=== PATIENT | male | born 1990 | race Caucasian/White ===

== ENCOUNTER 2018-11-14 09:15 | Emergency (ER) | payer OTHER ==
[~2018-11-14] VITALS: Ht 170.2 cm; Wt 66.2 kg
[2018-11-14 09:25] VITALS: BP 125/70
--- NOTE | 2018-11-14 09:25 | NUR ---
BIB SELF. AAO X4, PT WANTS TO SELF-ADMIT FOR SUICIDAL IDEATION. PT REFUSED TO DIVULGE SPECIFIC PLANS/THOUGHTS. CLEAR SPEECH. STEADY GAIT. PT REFUSED TO CHANGE TO GOWN. OTHER PERSONAL BELONGINGS WERE STORED AND SECURED IN A PLASTIC BAG. SECURITY NOTIFIED. PT APPEARS TO BE SUSPICIOUS AND DOESN'T WANT A LOT OF PEOPLE AROUND OR TO SEE HIM.PT WAS PLACED ON 5150 HOLD BY OIL TRUCK DRIVERJAIRO. EMT JES AT BEDSIDE. ON LOW BED POSITION, LOCKED. HOB UP. ER MADE AWARE OF PT STATUS.
--- NOTE | 2018-11-14 09:40 | NUR ---
PT IS ASLEEP AND RESTING IN BED. NO DISRESS NOTED. WILL CONTINUE TO MONITOR.
--- NOTE | 2018-11-14 09:46 | NUR ---
Patient being evaluated by physician at bedside.
--- NOTE | 2018-11-14 10:00 | NUR ---
ESPINOZA Rose encourage the pt to provide urine specimen but pt unable to provide at this time
[2018-11-14 10:10] LABS: BASOPHILS # (AUTO) 0.1 K/uL (0.00-0.22); BASOPHILS % (AUTO) 0.9 % (0.0-2.0); EOSINOPHILS % (AUTO) 0.4 % (0.0-4.0); HEMATOCRIT 43.9 % (36-52); HEMOGLOBIN 14.6 g/dL (12.0-18.0); LYMPHOCYTES # (AUTO) 2.1 K/uL (2.0-11.5); LYMPHOCYTES % (AUTO) 36.2 % (20.5-51.1); MEAN CORPUSCULAR HEMOGLOBIN 31 pg (27-31); MEAN CORPUSCULAR HGB CONC 33 g/dL (33-37); MEAN CORPUSCULAR VOLUME 92.3 fL (80-94); MONOCYTES # (AUTO) 0.6 K/uL (0.8-1.0); MONOCYTES % (AUTO) 10.6 % (1.7-9.3); NEUTROPHILS % (AUTO) 51.9 % (42.2-75.2); PLATELET COUNT (AUTO) 249 K/uL (140-450); RED BLOOD CELL COUNT(AUTO) 4.76 MIL/uL (4.20-6.10); RED CELL DISTRIBUTION WIDTH 13.6 % (11.6-13.7); WHITE BLOOD COUNT (AUTO) 5.7 K/uL (4.8-10.8)
--- NOTE | 2018-11-14 10:30 | NUR ---
PT IS ASLEEP AND RESTING. EASILY TO AROUSE. JES EMT AT BEDSIDE. WILL CONTINUE TO MONITOR.
[2018-11-14 10:33] LABS: ANION GAP 12.5 (8-16); CARBON DIOXIDE 28.7 mmol/L (21-32); CHLORIDE 102 mmol/L (98-107); CREATININE 0.9 mg/dL (0.7-1.3); GFR ARICAN-AMERICAN 128 mL/min (>90); GLUCOSE 83 mg/dL (74-106); POTASSIUM 4.2 mmol/L (3.5-5.1); SODIUM SERUM 139 mmol/L (136-145); UREA NITROGEN, BLOOD 17 mg/dL (7-18)
[2018-11-14 10:37] LABS: ASPARTATE AMINOTRANSFERASE 36 U/L (15-37); TOTAL BILIRUBIN 0.6 mg/dL (0.0-1.0)
--- NOTE | 2018-11-14 11:00 | NUR ---
Pt informed by charge histotechnologist he will be straight cath since he is unable to provide urine specimen at this time but patient refused Addendum: 11/14/[address] at [address] Gutierrez notified
[2018-11-14] MEDS ORDERED: diphenhydrAMINE 50 MG/ML VIAL IM ONE (12:00)
[2018-11-14] MEDS ORDERED: LORazepam 2 MG/ML VIAL IVP ONE (12:00)
--- NOTE | 2018-11-14 12:00 | NUR ---
SPOKE TO NEWTON GRIFFITH FOR ASSISTANCE. PATIENT ON 5150 WALKED TOWARD [facility]. PRIMARY NURSE ELSIE MADE AWARE. HOSPITAL SECURITY ALSO CALLED FOR ASSISTANCE.
--- NOTE | 2018-11-14 12:11 | NUR ---
[place] PD at the facility talking to Dr Gutierrez and maltster. Per Dr Gutierrez was medically cleared but pt had eloped at 1158 with security at bedside. Per [place] PD they found the patient on the street and the patient wants to go to [facility]. Per [place] GRIFFITH he will evaluated and transported to [facility]. Belongings given to Audie GRIFFITH.
--- NOTE | 2018-11-14 14:00 | NUR ---
ATTEMPTED TO FAX HOLD TO [phone] SINCE [phone], COULD NOT BE SENT/TRANSACTION CAN NOT BE SENT.
== END 2018-11-14 11:58 | disposition left against medical advice (07) ==
LOC: MED 09:15
DX: R45.851 Suicidal ideations (principal); F32.9 Major depressive disorder, single episode, unspecified; F15.10 Other stimulant abuse, uncomplicated; F12.10 Cannabis abuse, uncomplicated; F20.9 Schizophrenia, unspecified; F17.200 Nicotine dependence, unspecified, uncomplicated; Z02.89 Encounter for other administrative examinations; Z88.8 Allergy status to other drugs, medicaments and biological substances
CPT/HCPCS: 36415; 80053; 85025; 99283; G0482

== ENCOUNTER 2019-02-25 09:55 | Emergency (ER) | payer MEDICAID, OTHER ==
[~2019-02-25] VITALS: Ht 170.2 cm; Wt 72.6 kg
[2019-02-25 09:55] VITALS: BP 125/78
--- NOTE | 2019-02-25 09:55 | NUR ---
Patient BIBA BLS, transferred to bed 8. RN evaluating patient at bedside.
--- NOTE | 2019-02-25 10:10 | NUR ---
BLOOD DRAW OBTAINED. CALLED LAB FOR BIOMATHEMATICIAN.
[2019-02-25] MEDS ORDERED: BUSPAR (10:14)
[2019-02-25] MEDS ORDERED: [UNRECOGNIZED DRUG - OTHER] (10:14)
[2019-02-25] MEDS ORDERED: [UNRECOGNIZED DRUG - OTHER] (10:14)
--- NOTE | 2019-02-25 10:26 | NUR ---
DR ARZATE AT BEDSIDE TO EVALUATE PT
--- NOTE | 2019-02-25 10:35 | NUR ---
PT WALKED OUT AMA . SIGNED THE PAPER. IV AND ID BAND TAKEN OUT. DR. ARZATE AWARE.
--- NOTE | 2019-02-25 10:35 | NUR ---
Patient does not wish to proceed with medical care recommended by DR ARZATE. Patient given information related to possible complications, up to and including , which could occur as a result of leaving hospital at this time. Patient verbalizes understanding of risks involved leaving against medical advice. Patient has signed AMA form.
[2019-02-25 10:53] LABS: BARBITURATE, URINE NEG. ng/ml (NEG <=200); BENZODIAZEPINE, URINE NEG. ng/mL (NEG <=200); CANNABINOID, URINE NEG. ng/mL (NEG <=50); COCAINE, URINE NEG. ng/mL (NEG <=300); OPIATE, URINE NEG. ng/mL (NEG <=2000); PHENCYCLIDINE SCREEN,URINE NEG. ng/mL (NEG <=25)
== END 2019-02-25 10:33 | disposition left against medical advice (07) ==
LOC: MED 09:55
DX: F15.10 Other stimulant abuse, uncomplicated (principal); F12.10 Cannabis abuse, uncomplicated; F25.9 Schizoaffective disorder, unspecified; F17.200 Nicotine dependence, unspecified, uncomplicated; Z88.8 Allergy status to other drugs, medicaments and biological substances
CPT/HCPCS: 36415; 80305; 99283; G0482

== ENCOUNTER 2019-06-09 14:50 | Inpatient (IN) | payer MEDICAID ==
[~2019-06-09] VITALS: Ht 170.2 cm; Wt 82.6 kg
[~2019-06-09 14:50] MED LIST: BUSPAR; [UNRECOGNIZED DRUG - OTHER]; [UNRECOGNIZED DRUG - OTHER]
--- NOTE | 2019-06-09 14:50 | NUR ---
PATIENT BIBA TO ER BED 5.
[2019-06-09 14:54] VITALS: BP 147/92
--- NOTE | 2019-06-09 14:54 | NUR ---
28 Y/O BIBA FOR SUICIDAL IDEATION. PT STATES "IM HEARING VOICES THEYRE TELLING ME TO HURT MYSELF, I DRANK A CHEMICAL OFF THE STREET". PATIENT IS A/O X3 FOLLOWS COMMANDS; PATIENT APPEARS WITHDRAWN; AGITATED. HE STATES, "I DON'T FEEL SAFE HERE". BREATHING IS UNLABORED AND SYMMETRICAL. DENIES N/V/D. ERMD MADE AWARE. 1:1 SITTER AT BEDSIDE. SUSI CONTINUE TO MONITOR. UNKOWN CHEMICAL INGESTION PMH: ANXIETY RX:BUSPIRONE; SEROQUEL; EFFEXORL TRAZADONE; GEODON
--- NOTE | 2019-06-09 15:08 | NUR ---
CONTACTED POISON CONTROL SERVICES ( ) AND SPOKE WITH DOTTY LITTLEJOHN. INSTRUCTED TO OBTAIN FULL BLOOD PANEL WORK UP, TOXICOLOGY SCREENING, BASIC LAB, AND EKG TO MONITOR FOR BASELINE. CALL POISON CONTROL FOR FURTHER SYMPTOMS. NOTIFIED ER MD. WILL CONTINUE TO MONITOR PATIENT.
--- NOTE | 2019-06-09 15:10 | NUR ---
LAB AT BEDSIDE.
--- NOTE | 2019-06-09 15:15 | NUR ---
Telepsychiatry consultation ordered as requested by Dr. Barton.
[2019-06-09 15:30] LABS: BASOPHILS % (AUTO) 0.4 % (0.0-2.0); EOSINOPHILS % (AUTO) 0.2 % (0.0-4.0); HEMATOCRIT 46.5 % (36-52); HEMOGLOBIN 15.3 g/dL (12.0-18.0); LYMPHOCYTES # (AUTO) 2.4 K/uL (2.0-11.5); LYMPHOCYTES % (AUTO) 32.3 % (20.5-51.1); MEAN CORPUSCULAR HEMOGLOBIN 31 pg (27-31); MEAN CORPUSCULAR HGB CONC 33 g/dL (33-37); MEAN CORPUSCULAR VOLUME 92.6 fL (80-94); MONOCYTES # (AUTO) 1.2 K/uL (0.8-1.0); MONOCYTES % (AUTO) 16.1 % (1.7-9.3); NEUTROPHILS # (AUTO) 3.9 K/uL (1.8-7.7); PLATELET COUNT (AUTO) 311 K/uL (140-450); RED BLOOD CELL COUNT(AUTO) 5.03 MIL/uL (4.20-6.10); RED CELL DISTRIBUTION WIDTH 14.6 % (11.6-13.7); WHITE BLOOD COUNT (AUTO) 7.6 K/uL (4.8-10.8)
[2019-06-09 15:32] LABS: APPEARANCE,URINE CLEAR (CLEAR); BILIRUBIN,URINE NEGATIVE (NEGATIVE); BLOOD, URINE NEGATIVE (NEGATIVE); COLOR,URINE YELLOW (YELLOW); LEUKOCYTE ESTERASE ,URINE NEGATIVE (NEGATIVE); NITRITE, URINE NEGATIVE (NEGATIVE); UGLUCOSE NEGATIVE (NEGATIVE)
[2019-06-09 15:38] LABS: BARBITURATE, URINE NEG. ng/ml (NEG <=200); BENZODIAZEPINE, URINE NEG. ng/mL (NEG <=200); CANNABINOID, URINE NEG. ng/mL (NEG <=50); COCAINE, URINE NEG. ng/mL (NEG <=300); OPIATE, URINE NEG. ng/mL (NEG <=2000); PHENCYCLIDINE SCREEN,URINE NEG. ng/mL (NEG <=25)
--- NOTE | 2019-06-09 15:40 | NUR ---
Dr. Barton evaluating patient at bedside.
[2019-06-09 15:41] LABS: RBC,URINE NONE SEEN /HPF (0-5); WBC,URINE NONE SEEN /HPF (0-5)
--- NOTE | 2019-06-09 16:01 | NUR ---
PT SPEAKING WITH PSYCHIATRIST VIA TELEPSYCH.
[2019-06-09 16:03] LABS: ANION GAP 14.2 (8-16); CARBON DIOXIDE 27.6 mmol/L (21-32); CHLORIDE 103 mmol/L (98-107); CREATININE 0.9 mg/dL (0.7-1.3); GFR ARICAN-AMERICAN 128 mL/min (>90); GLUCOSE 89 mg/dL (74-106); POTASSIUM 3.8 mmol/L (3.5-5.1); SODIUM SERUM 141 mmol/L (136-145); UREA NITROGEN, BLOOD 16 mg/dL (7-18)
[2019-06-09 16:08] LABS: ALBUMIN 4.4 g/dL (3.4-5.0); ASPARTATE AMINOTRANSFERASE 34 U/L (15-37); TOTAL BILIRUBIN 0.8 mg/dL (0.0-1.0)
[2019-06-09 16:09] LABS: ACETAMINOPHEN < 0.5 ug/ml (10-30); SALICYLATE < 2.8 mg/dL (2.8-20.0)
--- NOTE | 2019-06-09 16:11 | NUR ---
PT. IS QUIETLY SITTING IN BED AND TE 100% OF MEAL. 1:1 AT BEDSIDE. WILL CONTINUE TO MONITOR.
--- NOTE | 2019-06-09 16:15 | NUR ---
[facility] aware of patient and will assist with placement if and when needed when medically cleared and evaluated. Please contact [phone] for further assistance.
--- NOTE | 2019-06-09 16:32 | NUR ---
SPOKE WITH TELEPSYCH MD. PATIENT TO BE ON HOLD DUE TO DANGER TO SELF. RIYAD MADE AWARE OF SITUATION.
[2019-06-09] MEDS ORDERED: LORazepam 1 MG TAB PO ONE (16:35)
[2019-06-09] MEDS ORDERED: OLANZapine 5 MG TAB PO ONE (16:35)
--- NOTE | 2019-06-09 16:47 | NUR ---
Contacted ER regarding 5150 hold. It has been addressed to "[facility]" and will need to be rewritten in order to find placement at any [facility] designated facility. They will attempt to correct, no eta. [facility] will hold on placement assistance until new 5150 is obtained and faxed to the Call Center at [phone]. Thank you
--- NOTE | 2019-06-09 17:00 | NUR ---
SPOKE WITH LT. EDOUARD RHODES VEHICLE DYNAMICS ENGINEER, OKAY TO CORRECT DOCUMENT AND CROSS OUT [facility] REC[facility].
--- NOTE | 2019-06-09 17:25 | NUR ---
PATIENT SLEEPING IN BED; NO DISTRESS NOTED AT THIS TIME. 1:1 SITTER AT BEDSIDE. WILL CONTINUE TO MONITOR.
[2019-06-09] MEDS ORDERED: ACETAMINOPHEN 325 MG TAB PO PRN (18:45)
[2019-06-09] MEDS ORDERED: ONDANSETRON 4 MG/2 ML VIAL IM/IVP PRN (18:45)
[2019-06-09] MEDS ORDERED: HYDROcodone/APAP 7.5/325 MG 1 TAB PO PRN (18:45)
[2019-06-09] MEDS ORDERED: LORazepam 2 MG/ML VIAL IVP PRN (18:50)
--- NOTE | 2019-06-09 19:11 | NUR ---
Pt report given to ESPINOZA ROSENBAUM. Transfer of care at this time.
[2019-06-09 19:26] LABS: PROTHROMBIN TIME 10.1 secs (10.8-13.4)
[2019-06-09 19:35] LABS: CHOL/HDL RATIO 2.2 (1-4.5); FREE T4 (FREE THYROXINE) 1.14 ng/dL (0.76-1.46); MAGNESIUM 1.9 mg/dL (1.8-2.4); PHOSPHORUS 3.7 mg/dL (2.5-4.9); THYROID STIMULATING HORMONE 2.34 uIU/mL (0.34-3.74)
--- NOTE | 2019-06-09 19:45 | NUR ---
PT ADMITTED TO [facility]. TRANSFERRED PT VIA RLUCAMA WITH CRISTINO DORAN, STABLE CONDITION. REPORT GIVEN TO NELLA DORAN. PT CARE TRANSFERRED TO RECEIVING RN.
--- NOTE | 2019-06-09 19:45 | NUR ---
X-Ray at bedside.
[2019-06-09 19:53] VITALS: BP 98/52
--- NOTE | 2019-06-09 19:53 | NUR ---
Admitted from ER TO [facility] , with chief complaint of SUICIDAL IDEATION, ABLE TO AMBULATE FROM GURNEY TO BED BUT VERY DROWSY. FELL ASLEEP AFTER LAYING ON BED. TRY TO WAKEN UP BUT SNORES IN DEEP SLEEP. 28 y/o ,Male, SEEMS Sedated. NO APPARENT DISTRESS NOTED. RESPIRATION EVEN AND UNLABORED. IV SALINE LOCK AT THE LEFT AC G20, PATENT AND INTACT. HEAD TO TOE ASSESSMENT DONE, NOTED TATTOOS IN THE ARMS AND LEGS, SKIN INTACT. WAKEN UP, MOVES BUT STILL CONTINUE SLEEPING. NO APPEARANCE OF PAIN NOTED, FLACC - 0. oriented to call light, bed, phone,television, bathroom, smoking policy,visiting hours, procedures, ID bracelet on. Belongings list checked. Addendum: 06/09/19 at 2135 by Dariela Cohen LVN ADMISSION DATA TAKEN FROM ER NOTES AND PATIENT'S MEDICAL RECORD DUE TO PATIENT DROWSINESS. DOES NOT ANSWERS QUESTIONS, JUST KEEP ON SLEEPING.
[2019-06-09] MEDS: busPIRone 5 MG TAB PO SCH (21:00)
--- NOTE | 2019-06-09 21:10 | NUR ---
POISON CONTROL PERSONNEL FELICIA INQUIRED ON HOW IS THE PATIENT AND ANY ABNORMAL LABS. ER REPORTED PATIENT SEEMS TO HAVE TAKEN UNKNOWN FLUIDS. INFORMED VS STABLE BUT PATIENT KEEP ON SLEEPING.
--- NOTE | 2019-06-09 21:55 | NUR ---
WAKEN UP TO TAKE BUSPIRONE ORDERED BY MD BUT JUST SHAKES HEAD AND CONTINUE SLEEPING.
[2019-06-09] MEDS: NACL 0.9% 1,000 ML IV SCH ×2 (22:00→23:29)
--- NOTE | 2019-06-09 23:55 | NUR ---
Calls were made to psych facilities regarding bed placement, currently no beds available tonfelisa. Packet was faxed to [facility] due to patient being self funded. [facility], spoke with Kelsey. [facility], spoke with Eliana. [facility], spoke with nursing supervisor inspection and testing Kandace. [facility], spoke with Reji. Mala Giraldo [facility], spoke with Cheryl. [facility], spoke with Alayna. [facility], spoke with Juan Alberto. [facility], spoke with Mary.
[2019-06-10] VITALS: BP 93/58
--- NOTE | 2019-06-10 | NUR ---
STILL SLEEPING COMFORTABLY. SITTER MONITORING PATIENT. VS STABLE.
--- NOTE | 2019-06-10 00:40 | NUR ---
PT SLEEPING, EASILY AROUSABLE, VITAL SIGNS TAKEN, BP ON THE LOW SIDE BUT STABLE, CALM AND COOPERATIVE AT THIS TIME, IVF INFUSING WELL, SITTER IN PLACE, PT WENT BACK TO SLEEP, CONTINUE TO MONITOR CLOSELY. Addendum: 06/11/19 at 0003 by Reese Felton RN WRONG TIME
--- NOTE | 2019-06-10 05:40 | NUR ---
REFUSED BLOOD DRAW FOR AM LABS.
--- NOTE | 2019-06-10 06:15 | NUR ---
INFORMED DR. PRYOR PATIENT REFUSED BLOOD DRAW AND REFUSED BUSPAR. HAS BEEN SLEEPING MOST OF THE TIME, VERY DROWSY, WITH BRADYCARDIA IN THE 50s.
--- NOTE | 2019-06-10 06:48 | NUR ---
STILL SLEEPING IN BED. CONDITION REMAIN STABLE. NEW SITTER WATCHING PATIENT. WILL ENDORSE TO AM NURSE FOR CONTINUITY OF CARE.
[2019-06-10] MEDS ORDERED: NACL 0.9% 1,000 ML IV ONE ×2 (07:05)
--- NOTE | 2019-06-10 07:10 | NUR ---
RECEIVED BEDSIDE REPORT FROM CUSTODIAN SUPERVISOR NURSE, PATIENT IS AWAKE, ALERT AND ORIENTEDX3. NO SIGNS OF DISTRESS ON RA. SKIN IS INTACT. IV ON R AC 20G INFUSING NS AT 60. CLEAN, DRY AND INTACT. PATIENT IS AMBULATORY. CONTINENT. 1:1 SITTER AT BEDSIDE. WILL CONTINUE TO MONITOR
[2019-06-10 08:00] VITALS: BP 94/55
--- NOTE | 2019-06-10 08:39 | NUR ---
PATIENT HAS BEEN SCREENED AND CATEGORIZED LOW NUTRITION RISK. PATIENT WILL BE SEEN WITHIN 7 DAYS OF ADMISSION. 06/16/[address]
--- NOTE | 2019-06-10 09:50 | NUR ---
GAVE BEDSIDE REPORT TO ESPINOZA RUSHING. PATIENT ENDORSED IN STABLE CONDITION
--- NOTE | 2019-06-10 09:51 | NUR ---
RECEIVED REPORT FROM DAY SHIFT NURSE ROSA M FOR CONTINUITY OF CARE. PT IN STABLE CONDITION. RESPIRATIONS EVEN AND UNLABORED. IV INTACT AND PATENT. SAFETY MEASURES IN PLACE. SITTER 1:1 AT BEDSIDE. BED IN LOW POSITION. WILL CONTINUE TO MONITOR.
--- NOTE | 2019-06-10 10:14 | NUR ---
Packet faxed to [facility] for review.
[2019-06-10] MEDS: busPIRone 5 MG TAB PO SCH ×2 (10:19→20:12)
--- NOTE | 2019-06-10 10:26 | NUR ---
PT LYING IN BED SLEEPING IN STABLE CONDITION. RESPIRATIONS EVEN AND UNLABORED. BED IN LOW POSITION. SITTER 1:1 AT BEDSIDE. WILL CONTINUE TO MONITOR.
--- NOTE | 2019-06-10 10:30 | NUR ---
Called [facility]. No beds at this time. Patient's name was put on wait list.
--- NOTE | 2019-06-10 10:46 | NUR ---
Packets faxed to [facility] and [facility] for review. There are no beds at either facility at this time.
--- NOTE | 2019-06-10 10:48 | NUR ---
Called Jeffry Pearson [facility]. No beds.
--- NOTE | 2019-06-10 10:51 | NUR ---
Called [facility], no answer. Will follow up later.
--- NOTE | 2019-06-10 10:51 | NUR ---
Called Bruce [facility]. No beds.
[2019-06-10] MEDS: NACL 0.9% 1,000 ML IV SCH (11:49)
--- NOTE | 2019-06-10 12:00 | NUR ---
CHANGED IV FLUIDS AT THIS TIME. PT SLEEPING AT THIS TIME IN STABLE CONDITION. RESPIRATIONS EVEN AND UNLABORED. BED IN LOW POSITION. SITTER 1:1 AT BEDSIDE. WILL CONTINUE TO MONITOR.
--- NOTE | 2019-06-10 14:20 | NUR ---
PT LYING IN BED SLEEPING IN STABLE CONDITION. BED IN LOW POSITION. CALL LIGHT AT BEDSIDE. WILL CONTINUE TO MONITOR.
[2019-06-10 14:30] LABS: BASOPHILS % (AUTO) 0.4 % (0.0-2.0); EOSINOPHILS # (AUTO) 0.1 K/uL (0-0.4); EOSINOPHILS % (AUTO) 0.9 % (0.0-4.0); HEMATOCRIT 43.5 % (36-52); HEMOGLOBIN 14.2 g/dL (12.0-18.0); LYMPHOCYTES # (AUTO) 2.5 K/uL (2.0-11.5); LYMPHOCYTES % (AUTO) 34.1 % (20.5-51.1); MEAN CORPUSCULAR HEMOGLOBIN 30 pg (27-31); MEAN CORPUSCULAR HGB CONC 33 g/dL (33-37); MEAN CORPUSCULAR VOLUME 93.4 fL (80-94); NEUTROPHILS # (AUTO) 3.8 K/uL (1.8-7.7); NEUTROPHILS % (AUTO) 51.6 % (42.2-75.2); PLATELET COUNT (AUTO) 280 K/uL (140-450); RED BLOOD CELL COUNT(AUTO) 4.66 MIL/uL (4.20-6.10); RED CELL DISTRIBUTION WIDTH 14.6 % (11.6-13.7); WHITE BLOOD COUNT (AUTO) 7.3 K/uL (4.8-10.8)
[2019-06-10 14:39] LABS: ANION GAP 12.6 (8-16); CREATININE 0.8 mg/dL (0.7-1.3); POTASSIUM 4.6 mmol/L (3.5-5.1)
--- NOTE | 2019-06-10 15:10 | NUR ---
PT REMOVED HEART MONITOR INFORMING THE NURSE SHE IS GOING HOME. Addendum: 06/10/19 at 1600 by Neda Montemayor RN WRONG PATIENT
[2019-06-10 16:00] VITALS: BP 104/62
--- NOTE | 2019-06-10 17:51 | NUR ---
TALKING WITH FRIEND AT BEDSIDE. RESPIRATIONS EVEN AND UNLABORED. SITTER 1:1. BED IN LOW POSITION. WILL CONTINUE TO MONITOR.
--- NOTE | 2019-06-10 19:15 | NUR ---
GAVE REPORT TO BODY SHOP SUPERVISOR NURSE GARCIA FOR CONTINUITY OF CARE. PT IN STABLE CONDITION.
--- NOTE | 2019-06-10 19:20 | NUR ---
RECEIVED PT AWAKE, CALM AND COOPERATIVE, DENIES ANY SI AT THIS TIME, VITAL SIGNS STABLE, IVF INFUSING WELL, PLAN OF CARE DISCUSSED, SITTER IN PLACE..
[2019-06-10 20:00] VITALS: BP 114/62
--- NOTE | 2019-06-10 20:15 | NUR ---
DUE MEDICATION GIVEN WITH EDUCATION PROVIDED, ALL NEEDS ATTENDED, SITTER IN PLACE.
[2019-06-10] MEDS ORDERED: QUEtiapine FUMARATE 25 MG TAB PO SCH (21:00)
--- NOTE | 2019-06-10 23:40 | NUR ---
PT SLEEPING, EASILY AROUSABLE, VITAL SIGNS TAKEN, BP ON THE LOW SIDE BUT STABLE, CALM AND COOPERATIVE AT THIS TIME, IVF INFUSING WELL, SITTER IN PLACE, PT WENT BACK TO SLEEP, CONTINUE TO MONITOR CLOSELY.
[2019-06-11] VITALS: BP 93/55
[2019-06-11 04:00] VITALS: BP 110/68
--- NOTE | 2019-06-11 04:00 | NUR ---
PT SLEEPING, EASILY AROUSABLE, VITAL SIGNS STABLE, DENIES ANY PAIN, IVF INFUSING WELL, MONITORED CLOSELY.
[2019-06-11] MEDS: NACL 0.9% 1,000 ML IV SCH ×2 (04:04→20:02)
--- NOTE | 2019-06-11 05:50 | NUR ---
PT REFUSED AM LAB DRAW, STATED "NO MORE", RISK AND BENEFITS EXPLAINED BUT STILL REFUSING.
--- NOTE | 2019-06-11 07:10 | NUR ---
RECEIVED BEDSIDE REPORT FROM MAINTENANCE AND CUSTODIAN SUPERVISOR NURSE GARCIA. PT IS ASLEEP, NO S/S OF ACUTE DISTRESS NOTED. PT ON ROOM AIR, SKIN INTACT. IV SITE NOTED ON THE R AC 20 G, CURRENTLY INFUSING NS 60 ML/HR. SITTER IS AT THE ROOM. SAFETY PRECAUTIONS IN PLACE. WILL CONTINUE TO MONITOR.
--- NOTE | 2019-06-11 07:15 | NUR ---
PT SLEEPING, NO SIGNS OF DISTRESS, REPORT GIVEN TO ESPINOZA MAYERS FOR CONTINUITY OF CARE.
[2019-06-11 08:00] VITALS: BP 118/66
--- NOTE | 2019-06-11 08:12 | NUR ---
PT WANTED TO REMOVE HIS IV, SAYS IT BOTHERS HIM. I DISCONNECTED HIM FROM THE IV FOR NOW. PT IS RESTING COMFORTABLY IN BED. WILL CONTINUE TO MONITOR
[2019-06-11] MEDS ORDERED: BISMUTH SUBSALICYLATE 15 ML UDBTL PO SCH (09:00)
[2019-06-11] MEDS: busPIRone 5 MG TAB PO SCH ×2 (10:13→20:03)
--- NOTE | 2019-06-11 10:22 | NUR ---
SCHEDULED BUSPAR ADMINISTERED, PT TOLERATED WELL. PT REFUSED THE PEPTO BISMOL, I NOTIFIED DR WATTERS, SHE SAID SHE WILL COME TALK TO HIM ABOUT TAKING IT. CONTINUING TO MONITOR PT. SITTER IS AT THE ROOM.
--- NOTE | 2019-06-11 12:52 | NUR ---
PT CONVERSING WITH A VISITOR AT BEDSIDE. SITTER IS AT THE ROOM.
--- NOTE | 2019-06-11 14:15 | NUR ---
PT IS TAKING A SHOWER. SITTER IS BY THE SHOWER DOOR.
[2019-06-11 15:39] LABS: BASOPHILS % (AUTO) 0.4 % (0.0-2.0); EOSINOPHILS # (AUTO) 0.1 K/uL (0-0.4); EOSINOPHILS % (AUTO) 0.8 % (0.0-4.0); HEMATOCRIT 43.4 % (36-52); HEMOGLOBIN 14.2 g/dL (12.0-18.0); LYMPHOCYTES # (AUTO) 3.1 K/uL (2.0-11.5); LYMPHOCYTES % (AUTO) 44.3 % (20.5-51.1); MEAN CORPUSCULAR HEMOGLOBIN 31 pg (27-31); MEAN CORPUSCULAR HGB CONC 33 g/dL (33-37); MEAN CORPUSCULAR VOLUME 93.6 fL (80-94); MONOCYTES # (AUTO) 0.7 K/uL (0.8-1.0); MONOCYTES % (AUTO) 10.3 % (1.7-9.3); NEUTROPHILS # (AUTO) 3.1 K/uL (1.8-7.7); NEUTROPHILS % (AUTO) 44.2 % (42.2-75.2); PLATELET COUNT (AUTO) 276 K/uL (140-450); RED BLOOD CELL COUNT(AUTO) 4.63 MIL/uL (4.20-6.10); RED CELL DISTRIBUTION WIDTH 14.2 % (11.6-13.7)
[2019-06-11 15:59] LABS: ANION GAP 12.3 (8-16); CARBON DIOXIDE 27.2 mmol/L (21-32); CREATININE 0.9 mg/dL (0.7-1.3); POTASSIUM 4.5 mmol/L (3.5-5.1)
[2019-06-11 16:00] VITALS: BP 131/80
[2019-06-11 16:03] LABS: MAGNESIUM 1.6 mg/dL (1.8-2.4); PHOSPHORUS 3.9 mg/dL (2.5-4.9)
--- NOTE | 2019-06-11 16:52 | NUR ---
PT RAN OUTSIDE WITH HIS VISITOR TO SMOKE. THE SITTER AND RN RAN AFTER HIM, CALLED SECURITY, SECURITY CAME TO ESCORT PT BACK TO HIS ROOM. PT IS BACK IN THE ROOM.
--- NOTE | 2019-06-11 18:02 | NUR ---
PT TOOK OUT HIS IV AND REFUSING TO HAVE ANOTHER ONE INSERTED. PT AND HIS VISITOR ARE CREATING A SCENE IN THE ROOM, SAYING THAT WE'RE "HOLDING HIM AGAINST HIS WILL", EVEN THOUGH HIS 5150 IS NOT OVER UNTIL TOMORROW (06/12) AT 14:35. DR SHULTZ HAS ALREADY BEEN PAGED TO CONSULT THE PT. PT IS ANGRY THAT PSYCHIATRIST HAS NOT SEEN HIM YET. PT IS ACCUSING US OF "LYING" TO TO HIM OF THE TIME THAT THE PSYCHIATRIST WOULD COME SEE HIM. PT SEEMS TO BE UNABLE TO UNDERSTAND THAT HE IS ON A LEGAL HOLD, AND THAT WE CANNOT LET HIM GO WITHOUT POLICE INVOLVEMENT. SECURITY WAS PAGED.
--- NOTE | 2019-06-11 18:22 | NUR ---
Received report from outgoing shift. Will continue to look for placement
[2019-06-11] MEDS ORDERED: LORazepam 2 MG/ML VIAL IM/IVP PRN (18:50)
[2019-06-11] MEDS ORDERED: ZIPRASIDONE 40 MG CAP PO SCH (18:54)
[2019-06-11] MEDS ORDERED: ZIPRASIDONE MESYLATE 20 MG/ML VIAL IM SCH (19:00)
[2019-06-11] MEDS ORDERED: HALOPERIDOL IM 5 MG/ML VIAL IM SCH (19:00)
--- NOTE | 2019-06-11 19:15 | NUR ---
POLICE WERE CALLED PT TRIED TO ELOPE, POLICE BROUGHT HIM BACK TO HIS ROOM AND SAID THAT WE NEED TO RESTRAIN HIM, OTHERWISE HE WILL ELOPE AGAIN. DR PRYOR NOTIFIED, AND HE ORDERED BILAT SOFT WRIST RESTRAINTS AND IM ATIVAN. IM ATIVAN ADMINISTERED. SECURITY PRESENT IN THE ROOM DURING MED ADMINISTRATION. POLICE OFFICERS NOTIFIED ME THAT PT HAS A WARRANT FOR ARREST WHEN HE GETS CLEARED BY PSYCH. CHARGE NURSE GARCIA AND PRIMARY NURSE EVENS ARE AWARE.
--- NOTE | 2019-06-11 19:30 | NUR ---
PT ENDORSED TO PHYSICIAN LOCUMS URGENT CARE NURSE FOR CONTINUITY OF CARE
--- NOTE | 2019-06-11 19:31 | NUR ---
RECEIVED ENDORSEMENT FROM OUTGOING AM SHIFT NURSE. INTRODUCED SELF TO PATIENT AND UPDATED BOARD. PATIENT ALERT AND ORIENTED X 4. CALM AND COOPERATIVE. DENIES PAIN NOR DISCOMFORT AT THIS TIME. NO APPARENT DISTRESS NOTED. ON 5150 HOLD. 1:1 SITTER. OBSERVED AT ALL TIMES. WILL CONTINUE TO MONITOR.
[2019-06-11] MEDS ORDERED: QUEtiapine FUMARATE 100 MG TAB PO SCH (21:00)
[2019-06-11] MEDS ORDERED: OLANZapine 5 MG TAB PO SCH (22:00)
--- NOTE | 2019-06-11 22:05 | NUR ---
ROUNDS DONE. PATIENT IN BED ASLEEP AT THIS TIME. VISIBLE CHEST RISE AND FALL NOTED.
--- NOTE | 2019-06-11 23:55 | NUR ---
Checks done. Patient resting in bed. No apparent distress noted. Visible chest rise and fall noted. Will continue to monitor.
[2019-06-12] VITALS: BP 101/81
--- NOTE | 2019-06-12 01:45 | NUR ---
Rounds done. Patient asleep in bed. No apparent distress noted. Visible chest rise and fall. Will continue to monitor.
--- NOTE | 2019-06-12 03:31 | NUR ---
Checks done. Patient lying in bed, asleep. Visible chest rise and fall noted. No apparent distress noted. 1:1 sitter. Observed at all times. Will continue to monitor.
--- NOTE | 2019-06-12 04:11 | NUR ---
Patient asleep on Right lateral side. Visible chest rise and fall noted.
--- NOTE | 2019-06-12 05:44 | NUR ---
S/W Herlinda earlier in the day. She stated the Kristal RN from [place] tried to do nurse to nurse for placement. Per CN at [place], patient no longer needs placement and that PD is on their way to evaluate to see patient. Patient has warrant for arrest and PD is awaiting psych clearance per note.
--- NOTE | 2019-06-12 06:10 | NUR ---
Patient comfortable in bed. Due medications given. Vital stable. Will endorse to AM shift RN for continuity of care.
[2019-06-12] MEDS ORDERED: QUET100T44 PO (06:56)
--- NOTE | 2019-06-12 07:17 | NUR ---
DR. BARRAGAN AT BEDSIDE TALKING WITH PATIENT. NO DISTRESS NOTED. AAOX4, CALM, COOPERATIVE, SKIN COLOR APPROPRIATE TO ETHNICITY, WARM TO TOUCH. SKIN INTACT. RESPIRATIONS EVEN, UNLABORED, ON ROOM AIR. NO IV SITE. DENIES ANY THOUGHTS OF HARMING SELF AT THIS TIME. REVIEWED PLAN OF CARE WITH PATIENT. PATIENT VERBALIZED UNDERSTANDING. SITTER AT BEDSIDE. WILL CONTINUE TO MONITOR.
--- NOTE | 2019-06-12 07:51 | NUR ---
DR. BARRAGAN CLEARED PATIENT OF 5150. CALLED [place] [employer] AT [phone], AND SPOKE TO PD DISPATCH TO LET THEM KNOW PATIENT MAY HAVE POSSIBLE WARRANT. PD DISPATCH CHECKED CASE NUMBER OF [id number] HOLD, AND PER PD DISPATCHER, [place] PD IS NOT GOING TO COME GET HIM AND THAT HE IS OK TO GO HOME. WILL NOTIFY
[2019-06-12 08:00] VITALS: BP 109/58
[2019-06-12] MEDS ORDERED: ZIPRASIDONE 40 MG CAP PO SCH (08:00)
[2019-06-12] MEDS ORDERED: MAGNESIUM OXIDE 400 MG TAB PO SCH (08:30)
[2019-06-12] MEDS: busPIRone 5 MG TAB PO SCH (09:41)
--- NOTE | 2019-06-12 09:44 | NUR ---
PATIENT LYING DOWN IN BED. NO DISTRESS NOTED. CONDITION UNCHANGED. SCHEDULED MEDICATIONS DUE GIVEN. WILL CONTINUE TO MONITOR.
[2019-06-12] MEDS ORDERED: BUS5 PO (09:45)
[2019-06-12] MEDS ORDERED: OLANZapine 5 MG TAB PO SCH (21:00)
== END 2019-06-12 10:10 | disposition home or self-care (01) | DRG 756 ==
LOC: MED 14:50 → MTU 18:46
PROVIDERS: ADMIT General Practice; ATTEND General Practice
DX: R45.851 Suicidal ideations (principal); E83.42 Hypomagnesemia; F15.10 Other stimulant abuse, uncomplicated; F25.9 Schizoaffective disorder, unspecified; F29 Unspecified psychosis not due to a substance or known physiological condition; Z88.8 Allergy status to other drugs, medicaments and biological substances; I10 Essential (primary) hypertension; F41.9 Anxiety disorder, unspecified; F17.210 Nicotine dependence, cigarettes, uncomplicated; Z91.19 Patient's noncompliance with other medical treatment and regimen
CPT/HCPCS: 36415; 71045; 80048; 80053; 80305; 81001; 83036; 83605; 83690; 83735; 83880; 84100; 84439; 84443; 85025; 85610; 85730; 87081; 93005; 99285; G0480; G0482; J2060; J3486; J7030